=== PATIENT | male | born 1970 | race Caucasian/White ===

== ENCOUNTER → 2019-02-05 12:51 | Outpatient (CLI) | payer MEDICARE ==
[~2019-02-05 12:51] MED LIST: BENGAY ULTRA S113 GM TOPICAL; CHLORASEPTIC177 ML TOPICAL; COLACE100 MG PO; DEPAKOTE500 MG PO; DULCOLAX5 MG PO; FISH OIL 1,0001 CA1 PO; FLORASTOR250 MG PO; GLUCOPHAGE1000 MG PO; HYDROXYZINE HCL10 MG PO; LEVEMIR IN100 UNITS/ SC; LEVOXYL25 MCG; LEVSIN/ANASP0.125 MG PO; LEXAPRO10 MG; LEXAPRO20 MG PO; LIPITOR10 MG PO; MILK OF MAGNESI30 ML PO; MUCINEX600 MG PO; NEURONTIN 300300 MG PO; NOVOLIN 70/30 110 ML SC; OMEPRAZOLE20 M1 PO; ORA RELIEF177 ML PO; PHENERGAN25 M1 PO; PHENOBARBITAL32.4 MG PO; PRINIVIL10 MG PO; SENNA LAXATIVE8.6 MG PO; TRAMADOL HCL E100 M1 PO; VITAMIN D31000 UNI2 PO; ZOFRAN ODT4 MG/UDTAB PO; ZOFRAN4 MG IM
[2019-02-06 12:16] VITALS: BMI 32.5
== END | disposition home or self-care (01) ==
LOC: D.LABREF 12:51
PROVIDERS: ATTEND Nurse Practitioner Adult Health
DX: J02.9 Acute pharyngitis, unspecified (principal)

== ENCOUNTER 2019-02-06 12:12 | Emergency (ER) | payer MEDICARE ==
[2019-02-06 12:16] VITALS: BMI 32.5
[2019-02-06] MEDS ORDERED: LIPITOR10 MG PO (12:19)
[2019-02-06] MEDS ORDERED: BENGAY ULTRA S113 GM TOPICAL (12:20)
[2019-02-06] MEDS ORDERED: CHLORASEPTIC177 ML TOPICAL (12:20)
[2019-02-06] MEDS ORDERED: DEPAKOTE500 MG PO (12:21)
[2019-02-06] MEDS ORDERED: COLACE100 MG PO (12:21)
[2019-02-06] MEDS ORDERED: DULCOLAX5 MG PO (12:22)
[2019-02-06] MEDS ORDERED: LEXAPRO20 MG PO (12:23)
[2019-02-06] MEDS ORDERED: LEXAPRO10 MG (12:23)
[2019-02-06] MEDS ORDERED: FISH OIL 1,0001 CA1 PO (12:23)
[2019-02-06] MEDS ORDERED: NEURONTIN 300300 MG PO (12:23)
[2019-02-06] MEDS ORDERED: MUCINEX600 MG PO (12:24)
[2019-02-06] MEDS ORDERED: HYDROXYZINE HCL10 MG PO (12:24)
[2019-02-06] MEDS ORDERED: LEVOXYL25 MCG (12:25)
[2019-02-06] MEDS ORDERED: GLUCOPHAGE1000 MG PO (12:25)
[2019-02-06] MEDS ORDERED: PRINIVIL10 MG PO (12:25)
[2019-02-06] MEDS ORDERED: LEVEMIR IN100 UNITS/ SC (12:25)
[2019-02-06] MEDS ORDERED: NOVOLIN 70/30 110 ML SC (12:26)
[2019-02-06] MEDS ORDERED: MILK OF MAGNESI30 ML PO (12:26)
[2019-02-06] MEDS ORDERED: OMEPRAZOLE20 M1 PO (12:27)
[2019-02-06] MEDS ORDERED: PHENOBARBITAL32.4 MG PO (12:27)
[2019-02-06] MEDS ORDERED: ZOFRAN4 MG IM (12:27)
[2019-02-06] MEDS ORDERED: SENNA LAXATIVE8.6 MG PO (12:28)
[2019-02-06] MEDS ORDERED: PHENERGAN25 M1 PO (12:28)
[2019-02-06] MEDS ORDERED: TRAMADOL HCL E100 M1 PO (12:29)
[2019-02-06] MEDS ORDERED: ORA RELIEF177 ML PO (12:29)
[2019-02-06] MEDS ORDERED: VITAMIN D31000 UNI2 PO (12:30)
[2019-02-06 13:00] LABS: BASOPHILS 0.1 % (0-2); EOSINOPHILS 1.7 % (0-7); HEMATOCRIT 41.4 % (42.0-54.0); HEMOGLOBIN 14.9 g/dL (13.5-17.5); IMMATURE GRANULOCYTES 0.2 % (0-5); LYMPHOCYTES 25.6 % (15-50); MCH 32.9 pg (26.0-34.0); MCV 91.4 fL (80.0-100.0); MEAN PLATELET VOLUME 10.2 fL (7.4-10.4); MONOCYTES 11.5 % (2-11); NEUTROPHILS 60.9 % (40-80); PLATELET COUNT 176 10x3/uL (130-400); RBC 4.53 10x6/uL (4.20-6.10); RDW 13.6 % (11.5-14.5); WBC 8.4 10x3/uL (4.8-10.8)
[2019-02-06 13:25] LABS: APPEARANCE CLEAR (CLEAR); COLOR YELLOW (YELLOW)
[2019-02-06 13:28] LABS: ALBUMIN 3.4 g/dL (3.4-5.0); ALKALINE PHOSPHATASE 152 U/L (46-116); ALT (SGPT) 31 U/L (10-68); CALC OSMOLALITY 276 mosm/kg (275-300); CALCIUM 9.5 mg/dL (8.5-10.1); CARBON DIOXIDE 28.1 mmol/L (21.0-32.0); CHLORIDE - SERUM 99 mmol/L (98-107); CREATININE - SERUM 1.1 mg/dL (0.6-1.3); POTASSIUM - SERUM 3.9 mmol/L (3.5-5.1); PROTEIN - SERUM 7.3 g/dL (6.4-8.2); SODIUM 137 mmol/L (136-145); UREA NITROGEN 13 mg/dL (7-18); eGFR NON AFRICAN AMERICAN 75 mL/min (90-120)
[2019-02-06 13:29] LABS: BILIRUBIN NEGATIVE (NEGATIVE); GLUCOSE NEGATIVE (NEGATIVE); KETONE NEGATIVE (NEGATIVE); NITRITE NEGATIVE (NEGATIVE); PROTEIN TRACE mg/dL (NEGATIVE); SPECIFIC GRAVITY 1.005 (1.005-1.020); UROBILINOGEN NORMAL (NORMAL)
[2019-02-06 13:30] LABS: BACTERIA FEW /hpf (NONE SEEN); EPITHELIAL CELLS 0-5 /hpf (0-5)
[2019-02-06 13:31] LABS: AMORPHOUS SEDIMENT <1+ /lpf (NONE SEEN)
[2019-02-06 13:33] LABS: AMYLASE - SERUM 53 U/L (25-115); LIPASE 133 U/L (73-393); TROPONIN-I < 0.017 ng/mL (0.000-0.060)
[2019-02-06 13:37] LABS: GLUCOSE 145 mg/dL (74-106)
[2019-02-06] MEDS ORDERED: LEVSIN/ANASP0.125 MG PO (14:32)
[2019-02-06] MEDS ORDERED: FLORASTOR250 MG PO (14:32)
[2019-02-06] MEDS ORDERED: ZOFRAN ODT4 MG/UDTAB PO (14:37)
[2019-02-06 15:11] VITALS: BP 110/72
== END 2019-02-06 15:12 | disposition home or self-care (01) ==
LOC: D.ER 12:12
PROVIDERS: Family Medicine
DX: R10.31 Right lower quadrant pain (principal); R19.7 Diarrhea, unspecified